=== PATIENT | female | born 1970 | race Caucasian/White ===

== ENCOUNTER 2018-07-30 17:53 | Inpatient (IN) | payer OTHER ==
[~2018-07-30] VITALS: Ht 167.6 cm; Wt 62.1 kg
[~2018-07-30 17:53] MED LIST: ALPR0.25 PO; ASPI81TA31 PO; CLOP75TA15 PO; ENOX60DI SQ; Metoprolol Tartrate PO; Morphine Sulfate IV; Nitroglycerin TP; SIMV20TA2 PO; SUMA50TA PO
[2018-07-30] MEDS ORDERED: SUMA50TA PO (18:16)
[2018-07-30] MEDS ORDERED: PRAV10TA40 PO (18:16)
[2018-07-30] MEDS ORDERED: ASPI81TA31 PO (18:16)
[2018-07-30 18:48] LABS: BASOPHILS % (AUTO) 0.7 % (0.0-2.0); EOSINOPHILS # (AUTO) 0.2 K/uL (0.0-0.7); EOSINOPHILS % (AUTO) 2.9 % (0.0-7.0); HEMATOCRIT 38.3 % (31.2-41.9); LYMPHOCYTES % (AUTO) 34.6 % (20.5-51.5); MEAN CORPUSCULAR HGB CONC 34 g/dL (32.3-35.6); MEAN CORPUSCULAR VOLUME 96.8 fL (75.5-95.3); MONOCYTES # (AUTO) 0.7 K/uL (2.0-10.0); MONOCYTES % (AUTO) 12.5 % (0.0-11.0); NEUTROPHILS # (AUTO) 2.9 K/uL (1.8-8.9); NEUTROPHILS % (AUTO) 49.3 % (38.5-71.5); PLATELET COUNT (AUTO) 239 K/uL (179-408); RED BLOOD CELL COUNT(AUTO) 3.95 MIL/uL (3.63-4.92); WHITE BLOOD COUNT (AUTO) 5.9 K/uL (3.8-11.8)
[2018-07-30 19:03] LABS: CREATININE 0.6 mg/dL (0.6-1.3); POTASSIUM 3.8 mmol/L (3.5-5.1)
[2018-07-30] MEDS ORDERED: ASPIRIN 325 MG TABLET ONE (19:11)
[2018-07-30] MEDS ORDERED: NITROGLYCERIN 0.4 MG/TAB BOTTLE SL ONE ×3 (19:12→21:30)
[2018-07-30] MEDS ORDERED: ASPIRIN 325 MG TABLET PO ONE (19:15)
[2018-07-30 19:17] LABS: BILIRUBIN,DIRECT 0.2 mg/dL (0.0-0.2); BILIRUBIN,TOTAL 0.8 mg/dL (0.2-1.0)
[2018-07-30] MEDS ORDERED: NITROGLYCERIN OINT 1 GM PACKET TP ONE ×2 (19:30→19:55)
[2018-07-30] MEDS ORDERED: ACETAMINOPHEN ES 500 MG TABLET PO STA (21:29)
[2018-07-30] MEDS ORDERED: ACETAMINOPHEN ES 500 MG TABLET ONE (21:34)
[2018-07-30 22:28] VITALS: BP 104/62
[2018-07-30] MEDS ORDERED: MORPHINE SULFATE 2 MG/1 ML DISP.SYRIN IV PRN (22:45)
[2018-07-30] MEDS ORDERED: SUMATRIPTAN SUCCINATE 50 MG TABLET PO PRN (22:45)
[2018-07-30] MEDS ORDERED: NITROGLYCERIN 0.4 MG/TAB BOTTLE SL PRN (22:45)
[2018-07-30] MEDS ORDERED: ACETAMINOPHEN 325 MG TABLET PO PRN (22:45)
[2018-07-30] MEDS ORDERED: ONDANSETRON 4 MG/2 ML VIAL IV PRN (22:45)
[2018-07-30] MEDS ORDERED: ZOLPIDEM 5 MG TABLET PO PRN (22:45)
[2018-07-31 04:00] VITALS: BP 94/54
[2018-07-31] MEDS: PANTOPRAZOLE SODIUM 40 MG TABLET.DR PO SCH (06:13)
[2018-07-31 07:53] LABS: BASOPHILS % (AUTO) 0.4 % (0.0-2.0); EOSINOPHILS # (AUTO) 0.1 K/uL (0.0-0.7); EOSINOPHILS % (AUTO) 2.7 % (0.0-7.0); HEMOGLOBIN 12.8 g/dL (10.9-14.3); LYMPHOCYTES # (AUTO) 1.5 K/uL (20.0-40.0); LYMPHOCYTES % (AUTO) 28.7 % (20.5-51.5); MEAN CORPUSCULAR HEMOGLOBIN 32.8 uug (24.7-32.8); MEAN CORPUSCULAR HGB CONC 34 g/dL (32.3-35.6); MEAN CORPUSCULAR VOLUME 97.3 fL (75.5-95.3); MONOCYTES # (AUTO) 0.5 K/uL (2.0-10.0); MONOCYTES % (AUTO) 9.2 % (0.0-11.0); NEUTROPHILS # (AUTO) 3.1 K/uL (1.8-8.9); PLATELET COUNT (AUTO) 235 K/uL (179-408); RED BLOOD CELL COUNT(AUTO) 3.91 MIL/uL (3.63-4.92); WHITE BLOOD COUNT (AUTO) 5.3 K/uL (3.8-11.8)
[2018-07-31 07:58] LABS: CREATININE 0.6 mg/dL (0.6-1.3); MAGNESIUM 1.7 mg/dL (1.8-2.4); PHOSPHOROUS 3.8 mg/dL (2.5-4.9); POTASSIUM 3.8 mmol/L (3.5-5.1)
[2018-07-31 08:01] LABS: THYROID STIMULATING HORMONE 1.51 mIU/mL (0.358-3.740)
[2018-07-31] MEDS: ASPIRIN 81 MG TAB.CHEW PO SCH (08:25)
[2018-07-31] MEDS: MAGNESIUM OXIDE 400 MG TABLET PO SCH ×2 (09:57→17:22)
[2018-07-31 11:10] VITALS: BP 98/61
[2018-07-31 15:48] VITALS: BP 104/66
[2018-07-31] MEDS: HYDROCODONE/APAP 5-325MG TABLET PO PRN ×2 (15:56→20:26)
[2018-07-31 19:21] VITALS: BP 102/60
[2018-07-31] MEDS ORDERED: Medication Not On Formulary EA (Pravastatin Sodium 10 MG) PO SCH (21:00)
[2018-07-31] MEDS ORDERED: ATORVASTATIN 10 MG TABLET PO SCH (21:00)
[2018-07-31 23:51] VITALS: BP 101/61
[2018-08-01 03:19] VITALS: BP 107/61
[2018-08-01] MEDS: PANTOPRAZOLE SODIUM 40 MG TABLET.DR PO SCH (06:16)
[2018-08-01] MEDS: HYDROCODONE/APAP 5-325MG TABLET PO PRN (06:17)
[2018-08-01] MEDS: ASPIRIN 81 MG TAB.CHEW PO SCH (08:52)
== END 2018-08-01 14:26 | disposition home or self-care (01) | DRG 198 ==
LOC: ER 17:56 → TELE 21:24
PROVIDERS: ADMIT Internal Medicine
PROC: B22 Imaging, Heart, Computerized Tomography (CT Scan) (ICD-10-PCS; principal; 2018-08-01)
DX: I25.119 Atherosclerotic heart disease of native coronary artery with unspecified angina pectoris (principal); E78.5 Hyperlipidemia, unspecified; G43.909 Migraine, unspecified, not intractable, without status migrainosus; I10 Essential (primary) hypertension; Z98.61 Coronary angioplasty status; I25.2 Old myocardial infarction; Z79.82 Long term (current) use of aspirin; Z79.899 Other long term (current) drug therapy; F41.9 Anxiety disorder, unspecified
CPT/HCPCS: 36415; 70030-TC; 71045; 83735; 84100; 84443; 85025; 85730; 93005; 93307; A4663; A9150; G0378; J2270